=== PATIENT | male | born 1960 | race Hispanic/Latino ===

== ENCOUNTER 2024-04-22 11:27 | Emergency (ER) | payer OTHER, SELFPAY ==
[2024-04-22 11:37] VITALS: BP 153/93; PULSE 126; RESP 16; TEMP 37.5; O2SAT 100
--- NOTE | 2024-04-22 12:00 | ED.GENADULT ---
HPI - General Adult General Chief complaint: Weakness Stated complaint: Weak and Stomach Pain Time Seen by Provider: 04/22/24 11:42 Source: patient and RN notes reviewed Mode of arrival: ambulatory Limitations: no limitations History of Present Illness HPI narrative: Patient presents today complaining of abdominal cramping and diarrhea since night. Last episode of diarrhea was approximately 1 hour prior to arrival. He is also reporting some fatigue, mild headache and nausea. Denies vomiting or fever. He drink some electrolyte fluids this morning, which seemed to help. Related Data Home Medications Medication Instructions Recorded Confirmed ergocalciferol (vitamin D2) 1,250 1,250 mcg PO DIRECTED 04/22/24 04/22/24 mcg (50,000 unit) capsule lisinopril 10 mg tablet 10 mg PO DAILY 04/22/24 04/22/24 rosuvastatin 40 mg tablet 40 mg PO DAILY 04/22/24 04/22/24 Allergies Allergy/AdvReac Type Severity Reaction Status Date / Time No Known Allergies Allergy Verified 04/22/24 11:36 Review of Systems Review of Systems: CONSTITUTIONAL: Denies body aches, fever, chills, or sweats.+ fatigue EYES: Denies visual changes, redness, or discharge. ENT: Denies rhinorrhea, congestion, sore throat, or otalgia. CARDIOVASCULAR: Denies chest pain, palpitations, or edema. RESPIRATORY: Denies cough or dyspnea. GASTROINTESTINAL: Denies vomiting. + abdominal cramping, nausea, diarrhea GENITOURINARY: Denies dysuria or hematuria. SKIN: Denies rash, itching, or wounds. MUSCULOSKELETAL: Denies back pain, joint pain, or myalgia. NEUROLOGIC: Denies numbness, tingling, or weakness.+ headache PSYCH: Denies depression or anxiety. PMFSH Comments At time of signature, I have reviewed and agree with nursing past medical, surgical, social and family history unless otherwise noted. Please see nursing chart for further information. There is no relevant family history pertinent to the presenting complaint Exam Narrative: GENERAL: Well-appearing, well-nourished, and in no acute distress. HEAD: Normocephalic, atraumatic. EYES: EOMI. No redness or drainage. Conjunctivae normal. ENT: Mucous membranes pink and moist. Throat normal. Uvula midline. NECK: Normal AROM. Supple. No lymphadenopathy. CHEST: No respiratory distress. Clear to auscultation. HEART: Regular rhythm. +tachycardia. No murmur appreciated. Normal peripheral pulses. ABDOMEN: Soft, nontender, nondistended, hyper active bowel sounds. EXTREMITIES: Normal range of motion. No edema. SKIN: Warm, dry, no rash. Capillary refill normal. Normal skin turgor. NEURO: No focal deficits. Alert and oriented x3. Gait steady. PSYCH: Normal affect. No signs of depression or anxiety. Course Course Level of Care: Express Care Visit Vital Signs Vital signs: Vital Signs Temperature 99.5 F 04/22/24 11:37 Pulse Rate 126 H 04/22/24 11:37 Respiratory Rate 16 04/22/24 11:37 Blood Pressure 153/93 H 04/22/24 11:37 Pulse Oximetry 100 04/22/24 11:37 Oxygen Delivery Room Air 04/22/24 11:37 Temperature 99.5 F 04/22/24 11:37 Pulse Rate 96 04/22/24 12:42 Respiratory Rate 18 04/22/24 12:42 Blood Pressure 144/78 H 04/22/24 13:05 Pulse Oximetry 98 04/22/24 12:42 Oxygen Delivery Room Air 04/22/24 12:42 Reviewed Medical Decision Making MDM Narrative Medical decision making narrative: Blood sugar 108. Gave patient option of oral zofran and hydration at [facility] with reevaluation or transfer now to the ER for further evaluation. Patient would like to try PO challenge first. 1245-Patient states he is feeling happy after Zofran and oral fluids. Discussed continuing oral hydration at home. Will prescribe some sublingual Zofran. Pulses decreased from 126-96. States abdominal cramping has completely resolved as well. Differential Diagnosis Differential Diagnosis: Dehydration, gastroenteritis, viral syndrome, food poisoning Vital Signs Vital Sign
[2024-04-22] MEDS: ONDANSETRON HCL ODT 4 MG TABLET SUBLINGUAL (12:01)
[2024-04-22 12:06] LABS: Glucose Point of Care 108 mg/dl (65-105)
[2024-04-22 12:42] VITALS: PULSE 96; RESP 18; O2SAT 98
[2024-04-22 13:05] VITALS: BP 144/78
== END 2024-04-22 13:05 | disposition home or self-care (01) ==
PROVIDERS: Emergency Provider Nurse Practitioner
DX: E86.0 Dehydration (principal); R11.0 Nausea; R19.7 Diarrhea, unspecified; E78.00 Pure hypercholesterolemia, unspecified; I10 Essential (primary) hypertension
CPT/HCPCS: 82948; 99213; A9270; G0463